=== PATIENT | female | born 1950 | race Caucasian/White ===

== ENCOUNTER 2020-07-17 21:09 | Inpatient (IN) ==
[2020-07-18] MEDS ORDERED: Ondansetron 4 MG/2 ML VIAL IVP PRN ×2 (02:37→14:49)
[2020-07-18] MEDS ORDERED: Melatonin 3 MG TABLET PO PRN (02:37)
[2020-07-18] MEDS ORDERED: Naloxone 0.4 MG/ML INJ IVP PRN (02:37)
[2020-07-18 04:31] LABS: Basophils # 0.1 K/mcL (0.0-0.2); Eosinophils # 0.1 K/mcL (0.0-0.6); Eosinophils % 2.3 %; Hematocrit 29.6 % (35.3-44.9); Hemoglobin 9.9 g/dL (11.5-15.4); Immature Granulocytes % 0.4 % (0-4); Lymphocytes # 1.2 K/mcL (0.6-4.6); Lymphocytes % 23.2 %; Mean Corpuscular HGB Conc 33.4 g/dL (31.6-35.5); Mean Corpuscular Hemoglobin 33.7 pg (28.0-33.3); Mean Corpuscular Volume 100.7 fL (83.0-100.0); Monocytes # 0.4 K/mcL (0.0-1.3); Monocytes % 8.4 %; Neutrophils # 3.3 K/mcL (1.6-8.9); Red Blood Count 2.94 M/mcL (3.82-4.97); Segmented Neutrophils % 64.7 %; White Blood Count 5.1 K/mcL (4.3-11.1)
[2020-07-18 04:32] LABS: INR 1.2; Prothrombin Time 13.7 Seconds (9.4-12.1)
[2020-07-18 04:34] LABS: Activated Partial Thrombo Time 28.5 Seconds (26.0-36.0)
[2020-07-18 04:42] LABS: Alanine Aminotransferase 48 Units/L (7-52); Albumin 2.1 g/dL (3.5-5.7); Albumin/Globulin Ratio 0.6 (1.1-2.2); Alkaline Phosphatase 263 Units/L (34-104); Aspartate Amino Transferase 91 Units/L (13-39); BUN/Creatinine Ratio 26 (6-26); Bilirubin,Direct 6.8 mg/dL (0.0-0.2); Bilirubin,Indirect 4.1 mg/dL (0.0-1.0); Bilirubin,Total 10.9 mg/dL (0.3-1.0); Blood Urea Nitrogen 19 mg/dL (8-23); Calcium 8.1 mg/dL (8.6-10.3); Carbon Dioxide 23 mEq/L (23-29); Chloride 108 mEq/L (98-107); Globulin 3.5 g/dL (2.4-3.5); Glucose 71 mg/dL (70-105); Magnesium 2.1 mg/dL (1.6-2.6); Osmolality,Calculated 287 (280-300); Phosphorous 2.8 mg/dL (2.7-4.5); Potassium 3.5 mEq/L (3.5-5.1); Sodium 138 mEq/L (136-145); Total Protein 5.6 g/dL (6.4-8.9); eGFR For African Americans > 60 (> 60); eGFR For Non-African Americans > 60 (> 60)
[2020-07-18] MEDS ORDERED: 0.9 % Sodium Chloride 1,000 ML IVC ONE (04:45)
[2020-07-18 04:48] LABS: Platelet Count 85 K/mcL (140-400)
[2020-07-18 04:49] LABS: Platelet Estimate Decreased (Normal)
[2020-07-18] MEDS ORDERED: Dextrose Gel 15 GM/37.5 ML TUBE PO PRN ×2 (05:42)
[2020-07-18] MEDS ORDERED: D5% in Water 1,000 ML IVC PRN (05:42)
[2020-07-18] MEDS: *HR* Dextrose 50 % in Water (Vial) 50 ML VIAL IVP PRN ×2 (05:55→12:10)
[2020-07-18 09:17] LABS: Amylase 90 Units/L (29-103); Lipase 474 Units/L (11-82)
[2020-07-18] MEDS: cefTRIAXone 1,000 MG in Water for inj. (sterile) 10 ML IVP SCH (09:21)
[2020-07-18] MEDS ORDERED: Lidocaine -MPF 4% 5 ML AMPUL ONE (13:28)
[2020-07-18] MEDS ORDERED: Lidocaine -MPF 2% 2 ML VIAL ONE (13:28)
[2020-07-18] MEDS ORDERED: *HR* Propofol 200 MG/20 ML VIAL IVP ONE (13:28)
[2020-07-18] MEDS ORDERED: Dexamethasone 4 MG/ML VIAL ONE (13:28)
[2020-07-18] MEDS ORDERED: *HR* Succinylcholine 200 MG/10 ML VIAL IVP ONE (13:28)
[2020-07-18] MEDS ORDERED: Ondansetron 4 MG/2 ML VIAL ONE (13:28)
[2020-07-18] MEDS ORDERED: *HR* FentaNYL (PF) 100 MCG/2 ML VIAL ONE (13:30)
[2020-07-18] MEDS ORDERED: Perflutren Lipid Microsphere 1.3 ML in 0.9 % Sodium Chloride 8.7 ML IVP PRN (14:19)
[2020-07-18] MEDS ORDERED: *HR* OxyCODONE Immed Rel 5 MG TABLET PO PRN (14:49)
[2020-07-18] MEDS ORDERED: *HR* PHENYLEPHRINE 1,000 MCG/10 ML SYRINGE IVP ONE (15:39)
[2020-07-18] MEDS ORDERED: Indomethacin 50 MG SUPP.RECT RC ONE (16:55)
[2020-07-18] MEDS: Albumin 25% 25gram/100mL 25 GM/100 ML IV.SOLN IVC SCH ×2 (18:25→18:26)
[2020-07-18] MEDS: 0.9 % Sodium Chloride 1,000 ML IVC SCH ×3 (18:28→22:33)
[2020-07-18] MEDS ORDERED: Albumin 25% 25gram/100mL 25 GM/100 ML IV.SOLN IVPB ONE (21:00)
[2020-07-19 00:19] LABS: Adenovirus Not Detected (Not Detect); Bordetella Pertussis Not Detected (Not Detect); Chlamydophila pneumoniae Not Detected (Not Detect); Coronavirus 229E Not Detected (Not Detect); Coronavirus HKU1 Not Detected (Not Detect); Coronavirus NL63 Not Detected (Not Detect); Coronavirus OC43 Not Detected (Not Detect); Human Metapneumovirus Not Detected (Not Detect); Human Rhinovirus/Enterovirus Not Detected (Not Detect); Influenza A Subtype 2009 H1 Not Detected (Not Detect); Influenza B Not Detected (Not Detect); Mycoplasma pneumoniae Not Detected (Not Detect); Parainfluenza Virus 1 Not Detected (Not Detect); Parainfluenza Virus 2 Not Detected (Not Detect); Parainfluenza Virus 3 Not Detected (Not Detect); Parainfluenza Virus 4 Not Detected (Not Detect); Respiratory Syncytial Virus Not Detected (Not Detect); SARS-CoV-2 Not Detected (Not Detect)
[2020-07-19 06:20] LABS: Basophils % 0.2 %; Hemoglobin 9.6 g/dL (11.5-15.4); Immature Granulocytes % 0.5 % (0-4); Red Cell Distribution Width 15.9 % (11.5-14.5)
[2020-07-19 06:22] LABS: Hematocrit 28.7 % (35.3-44.9); Immature Platelets 6.9 % (1.1-6.1); Lymphocytes # 0.6 K/mcL (0.6-4.6); Lymphocytes % 12.7 %; Mean Corpuscular HGB Conc 33.4 g/dL (31.6-35.5); Mean Corpuscular Hemoglobin 34.4 pg (28.0-33.3); Mean Corpuscular Volume 102.9 fL (83.0-100.0); Mean Platelet Volume 12.7 fL (9.4-12.4); Monocytes # 0.1 K/mcL (0.0-1.3); Monocytes % 2.9 %; Neutrophils # 3.7 K/mcL (1.6-8.9); Red Blood Count 2.79 M/mcL (3.82-4.97); Segmented Neutrophils % 83.7 %; White Blood Count 4.4 K/mcL (4.3-11.1)
[2020-07-19 06:29] LABS: Platelet Count 97 K/mcL (140-400)
[2020-07-19] MEDS: 0.9 % Sodium Chloride 1,000 ML IVC SCH ×3 (06:35→21:06)
[2020-07-19 06:59] LABS: % Iron Saturation 53 % (15-50); Alanine Aminotransferase 44 Units/L (7-52); Albumin 2.4 g/dL (3.5-5.7); Albumin/Globulin Ratio 0.8 (1.1-2.2); Alkaline Phosphatase 262 Units/L (34-104); Aspartate Amino Transferase 93 Units/L (13-39); BUN/Creatinine Ratio 21 (6-26); Bilirubin,Total 10.1 mg/dL (0.3-1.0); Blood Urea Nitrogen 15 mg/dL (8-23); Calcium 8.1 mg/dL (8.6-10.3); Carbon Dioxide 20 mEq/L (23-29); Chloride 108 mEq/L (98-107); Ferritin 262 ng/mL (10-120); Globulin 3.2 g/dL (2.4-3.5); Glucose 119 mg/dL (70-105); Iron 77 mcg/dL (50-170); Osmolality,Calculated 284 (280-300); Phosphorous 2.8 mg/dL (2.7-4.5); Potassium 3.7 mEq/L (3.5-5.1); Sodium 136 mEq/L (136-145); Total Protein 5.6 g/dL (6.4-8.9); Transferrin 104 mg/dL (203-362); eGFR For African Americans > 60 (> 60); eGFR For Non-African Americans > 60 (> 60)
[2020-07-19] MEDS ORDERED: Ondansetron 4 MG/2 ML VIAL ONE (06:59)
[2020-07-19] MEDS ORDERED: *HR* Rocuronium Bromide 50 MG/5 ML VIAL ONE (06:59)
[2020-07-19] MEDS ORDERED: Lidocaine -MPF 2% 2 ML VIAL ONE (06:59)
[2020-07-19] MEDS ORDERED: Lidocaine HCL 4 ML Topical Solution (Laryng-O-Jet Kit Sterile Pak) TP ONE (06:59)
[2020-07-19] MEDS ORDERED: Dexamethasone 4 MG/ML VIAL ONE ×2 (06:59→11:18)
[2020-07-19] MEDS ORDERED: *HR* FentaNYL (PF) 100 MCG/2 ML VIAL ONE (07:00)
[2020-07-19] MEDS ORDERED: *HR* Propofol 200 MG/20 ML VIAL IVP ONE (07:00)
[2020-07-19 07:03] LABS: Folate 9.4 ng/mL (3.0-16.0)
[2020-07-19] MEDS ORDERED: *HR* HYDROmorphone PF 0.5 MG/0.5 ML SYRINGE IVP PRN (07:26)
[2020-07-19] MEDS ORDERED: *HR* OxyCODONE Immed Rel 5 MG TABLET PO PRN (07:26)
[2020-07-19] MEDS ORDERED: Ondansetron 4 MG/2 ML VIAL IVP PRN ×2 (07:26→13:24)
[2020-07-19] MEDS ORDERED: Albumin 25% 25gram/100mL 25 GM/100 ML IV.SOLN IVPB ONE ×2 (09:00→13:24)
[2020-07-19] MEDS: cefTRIAXone 1,000 MG in Water for inj. (sterile) 10 ML IVP SCH (11:20)
[2020-07-19] MEDS ORDERED: *HR* HYDROMORPHONE 2 MG/ML VIAL ONE (11:49)
[2020-07-19] MEDS ORDERED: Sugammadex Sodium 200 MG/2 ML VIAL IV ONE (12:14)
[2020-07-19] MEDS ORDERED: Melatonin 3 MG TABLET PO PRN (13:24)
[2020-07-19] MEDS ORDERED: Dextrose Gel 15 GM/37.5 ML TUBE PO PRN ×2 (13:24)
[2020-07-19] MEDS ORDERED: Perflutren Lipid Microsphere 1.3 ML in 0.9 % Sodium Chloride 8.7 ML IVP PRN (13:24)
[2020-07-19] MEDS ORDERED: Naloxone 0.4 MG/ML INJ IVP PRN (13:24)
[2020-07-19] MEDS ORDERED: D5% in Water 1,000 ML IVC PRN (13:24)
[2020-07-19] MEDS ORDERED: *HR* Dextrose 50 % in Water (Vial) 50 ML VIAL IVP PRN (13:24)
[2020-07-20] MEDS: 0.9 % Sodium Chloride 1,000 ML IVC SCH ×2 (06:52→18:19)
[2020-07-20 08:49] LABS: Basophils % 0.1 %; Hemoglobin 10.4 g/dL (11.5-15.4); Immature Granulocytes % 0.4 % (0-4); Lymphocytes # 1.5 K/mcL (0.6-4.6); Lymphocytes % 14.3 %; Mean Corpuscular HGB Conc 32.5 g/dL (31.6-35.5); Mean Corpuscular Volume 104.6 fL (83.0-100.0); Mean Platelet Volume 12.4 fL (9.4-12.4); Monocytes % 9.9 %; Neutrophils # 7.7 K/mcL (1.6-8.9); Platelet Count 139 K/mcL (140-400); Red Blood Count 3.06 M/mcL (3.82-4.97); Red Cell Distribution Width 16.6 % (11.5-14.5); Segmented Neutrophils % 75.3 %
[2020-07-20 09:06] LABS: White Blood Count 10.2 K/mcL (4.3-11.1)
[2020-07-20] MEDS: cefTRIAXone 1,000 MG in Water for inj. (sterile) 10 ML IVP SCH (09:45)
[2020-07-20 09:47] LABS: Alanine Aminotransferase 54 Units/L (7-52); Albumin 2.9 g/dL (3.5-5.7); Albumin/Globulin Ratio 0.9 (1.1-2.2); Alkaline Phosphatase 269 Units/L (34-104); Aspartate Amino Transferase 127 Units/L (13-39); BUN/Creatinine Ratio 20 (6-26); Bilirubin,Total 9.2 mg/dL (0.3-1.0); Blood Urea Nitrogen 17 mg/dL (8-23); Calcium 8.6 mg/dL (8.6-10.3); Carbon Dioxide 19 mEq/L (23-29); Chloride 113 mEq/L (98-107); Globulin 3.1 g/dL (2.4-3.5); Glucose 108 mg/dL (70-105); Osmolality,Calculated 288 (280-300); Potassium 3.7 mEq/L (3.5-5.1); Sodium 138 mEq/L (136-145); eGFR For African Americans > 60 (> 60); eGFR For Non-African Americans > 60 (> 60)
[2020-07-20] MEDS ORDERED: Dexamethasone 4 MG/ML VIAL ONE ×2 (13:18→14:15)
[2020-07-20] MEDS ORDERED: *HR* FentaNYL (PF) 100 MCG/2 ML VIAL ONE (13:18)
[2020-07-20] MEDS ORDERED: *HR* Propofol 200 MG/20 ML VIAL IVP ONE (13:18)
[2020-07-20] MEDS ORDERED: Lidocaine -MPF 2% 2 ML VIAL ONE (13:18)
[2020-07-20] MEDS ORDERED: Ondansetron 4 MG/2 ML VIAL ONE (13:18)
[2020-07-20] MEDS ORDERED: *HR* Succinylcholine 200 MG/10 ML VIAL IVP ONE (13:18)
[2020-07-20] MEDS ORDERED: Lidocaine -MPF 4% 5 ML AMPUL ONE (13:19)
[2020-07-20] MEDS ORDERED: Ondansetron 4 MG/2 ML VIAL IVP PRN (13:54)
[2020-07-20] MEDS ORDERED: *HR* FentaNYL (PF) 100 MCG/2 ML VIAL IVP PRN (13:54)
[2020-07-20] MEDS ORDERED: Simethicone 40 MG/0.6 ML MLS IR ONE (13:58)
[2020-07-20] MEDS ORDERED: Ringers Solution, Lactated 1,000 ML IVC SCH (14:00)
[2020-07-20] MEDS ORDERED: Indomethacin 50 MG SUPP.RECT RC ONE (14:36)
[2020-07-20] MEDS: Furosemide 20 MG TABLET PO SCH (18:02)
[2020-07-21] MEDS: 0.9 % Sodium Chloride 1,000 ML IVC SCH (02:06)
[2020-07-21 02:54] LABS: Hemoglobin 9.3 g/dL (11.5-15.4); Red Cell Distribution Width 16.6 % (11.5-14.5)
[2020-07-21 02:56] LABS: Hematocrit 28.9 % (35.3-44.9); Immature Granulocytes % 0.5 % (0-4); Immature Platelets 4.3 % (1.1-6.1); Lymphocytes # 0.9 K/mcL (0.6-4.6); Lymphocytes % 19.8 %; Mean Corpuscular HGB Conc 32.2 g/dL (31.6-35.5); Mean Corpuscular Hemoglobin 34.3 pg (28.0-33.3); Mean Corpuscular Volume 106.6 fL (83.0-100.0); Monocytes # 0.3 K/mcL (0.0-1.3); Monocytes % 6.8 %; Neutrophils # 3.1 K/mcL (1.6-8.9); Platelet Count 91 K/mcL (140-400); Red Blood Count 2.71 M/mcL (3.82-4.97); Segmented Neutrophils % 72.9 %; White Blood Count 4.3 K/mcL (4.3-11.1)
[2020-07-21 03:13] LABS: Alanine Aminotransferase 60 Units/L (7-52); Albumin 2.4 g/dL (3.5-5.7); Albumin/Globulin Ratio 0.9 (1.1-2.2); Alkaline Phosphatase 233 Units/L (34-104); Aspartate Amino Transferase 127 Units/L (13-39); BUN/Creatinine Ratio 22 (6-26); Bilirubin,Total 7.6 mg/dL (0.3-1.0); Blood Urea Nitrogen 18 mg/dL (8-23); Carbon Dioxide 20 mEq/L (23-29); Chloride 113 mEq/L (98-107); Globulin 2.7 g/dL (2.4-3.5); Glucose 108 mg/dL (70-105); Osmolality,Calculated 290 (280-300); Potassium 3.6 mEq/L (3.5-5.1); Sodium 139 mEq/L (136-145); Total Protein 5.1 g/dL (6.4-8.9); eGFR For African Americans > 60 (> 60); eGFR For Non-African Americans > 60 (> 60)
[2020-07-21 07:46] VITALS: BP 107/66
[2020-07-21] MEDS: Furosemide 20 MG TABLET PO SCH (08:28)
[2020-07-21] MEDS: cefTRIAXone 1,000 MG in Water for inj. (sterile) 10 ML IVP SCH (08:29)
== END 2020-07-21 11:51 | disposition home or self-care (01) | DRG 418 ==
LOC: 3ANU → SUATTDRO 07-18 01:15
PROVIDERS: ADMIT Internal Medicine; ATTEND Family Medicine